=== PATIENT | female | born 1990 ===

== ENCOUNTER 2021-10-22 21:46 | Emergency (ER) | payer MEDICAID ==
[~2021-10-22] VITALS: Ht 165.1 cm; Wt 88.9 kg
[2021-10-22 21:46] VITALS: BP 131/84
== END 2021-10-23 01:16 | disposition left against medical advice (07) ==
LOC: ER 21:46
DX: F19.90 Other psychoactive substance use, unspecified, uncomplicated (principal); F12.10 Cannabis abuse, uncomplicated; F17.210 Nicotine dependence, cigarettes, uncomplicated